=== PATIENT | male | born 2000 | race Caucasian/White ===

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

== ENCOUNTER 2019-06-21 07:20 | Emergency (ER) | payer BC, OTHER ==
[2019-06-21] MEDS ORDERED: Sodium Chloride 0.9% 10 ML Syringe FLUSH PRN (07:32)
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
[2019-06-21] MEDS ORDERED: FLU Vacc QS2019-20(6MOS+)/PF 60 MCG/0.5 ML SYRINGE IM ONE (08:15)
[2019-06-21] MEDS ORDERED: Iopamidol 612 MG/ML 100 ML Bottle IVPUSH ONE (08:17)
[2019-06-21] MEDS ORDERED: Sodium Chloride 0.9% 10 ML Syringe FLUSH ONE (08:17)
--- NOTE | 2019-06-21 08:34 | CT ---
Head CT Technique: Multiple axial sections through the brain were obtained. Intravenous contrast was not utilized. Comparison: No prior intracranial imaging. Findings: Ventricles along with basal cisterns and sulci over the convexities appear within normal limits for the patient's age. No abnormal parenchymal densities are seen. No evidence of intracranial hemorrhage. No midline shift or mass effect is seen. Bone window settings were reviewed which show minimal mucosal thickening scattered within the ethmoid sinuses. No acute calvarial abnormality is appreciated. Impression: 1. Minimal sinus findings which are felt to be incidental. 2. No acute intracranial abnormality is appreciated. Diagnostic code #2
--- NOTE | 2019-06-21 08:34 | CR ---
Chest: Portable view of the chest was obtained. Comparison: No prior chest imaging is available. Heart size and mediastinum are normal. Lungs are clear. Bony structures are unremarkable. Impression: 1. Nothing acute is seen on portable chest x-ray. Diagnostic code #1
--- NOTE | 2019-06-21 08:47 | CT ---
CT chest Technique: Multiple axial sections were obtained from above the lung apices inferiorly through the lung bases. Intravenous contrast was utilized. Comparison: No prior chest imaging is available. Findings: Soft tissue density within the superior mediastinum is seen which is felt compatible with residual thymic tissue. Aorta shows no aneurysm. No pericardial fluid is seen. Hilar regions and mediastinum show no adenopathy. Lung window settings were reviewed which show no acute parenchymal change. No pleural effusions are seen. No pneumothorax is identified. Bone window settings were reviewed which show no discrete rib fracture. Vertebral body heights and disc spaces are maintained within the thoracic spine. No discrete fracture or subluxation is seen. Reconstructed sagittal images of the sternum appear to be intact. Impression: 1. Nothing acute is appreciated on CT study of the chest. Diagnostic code #1 CT abdomen and pelvis Technique: Multiple axial sections were obtained from above the dome of the diaphragm inferiorly through the pubic symphysis. Intravenous contrast was utilized. No oral contrast was given. Comparison: Prior noncontrast CT abdomen and pelvis exam of 12/14/17. Findings: Liver contains no focal parenchymal abnormality. Spleen appears within normal limits. Small soft tissue nodule is seen adjacent to the upper spleen compatible with accessory splenic tissue. Adrenal glands appear unremarkable. Gallbladder contains no calcified gallstones. Pancreas is within normal limits. Kidneys show symmetric contrast enhancement and appear unremarkable. No retroperitoneal adenopathy is seen. Aorta shows no aneurysm. No mesenteric abnormalities are seen. No pelvic mass or adenopathy is noted. No free fluid or inflammatory change is seen within the abdomen or pelvis. Appendix is seen which is normal in appearance. Bone window settings were reviewed which show no acute osseous finding. Impression: 1. Nothing acute is appreciated on CT study of the abdomen and pelvis. Diagnostic code #1
--- NOTE | 2019-06-21 08:47 | CR ---
Right tibia and fibula: AP and lateral views of the right tibia and fibula were obtained. Comparison: No previous tibia or fibula exam. No fracture or other bony abnormality is identified. Impression: 1. No acute bony abnormality is appreciated on right tibia and fibula exam. Diagnostic code #1
--- NOTE | 2019-06-21 08:47 | CR ---
Right foot: Four views of the right foot were obtained. Comparison: No prior foot exam. Joint spaces are preserved. Small calcification is seen off the distal second metatarsal between the second and third distal metatarsals. This is felt to be old and of no acute significance. No acute fracture, dislocation or other bony abnormality is seen. Impression: 1. Small soft tissue calcification as noted above which is felt to be incidental. 2. Nothing acute is appreciated on right foot exam. Diagnostic code #2
[2019-06-21] MEDS ORDERED: Lidocaine 1% 50 ML MDV INJECT ONE (09:18)
[2019-06-21 11:15] VITALS: BP 136/87; PULSE 81
== END 2019-06-21 10:24 | disposition home or self-care (01) ==
LOC: JD.ED 07:20
DX: S81.011A Laceration without foreign body, right knee, initial encounter (principal); S93.601A Unspecified sprain of right foot, initial encounter; S00.83XA Contusion of other part of head, initial encounter; S20.211A Contusion of right front wall of thorax, initial encounter; V54.5XXA Driver of pick-up truck or van injured in collision with heavy transport vehicle or bus in traffic accident, initial encounter; Y92.410 Unspecified street and highway as the place of occurrence of the external cause
CPT/HCPCS: 12004; 36415; 70450; 71045; 71260; 73590; 73630; 74177; 80053; 80320; 85025; 99285; J2001; Q9967; G0480

== ENCOUNTER 2023-04-19 20:00 | Emergency (ER) | payer OTHER ==
[2023-04-19 20:51] LABS: BASOPHILS ABSOLUTE AUTO 0.04 K/mm3 (0.01-0.08); BASOPHILS PERCENT AUTO 0.4 % (0.1-1.2); EOSINOPHILS ABSOLUTE AUTO 0.29 K/mm3 (0.04-0.54); EOSINOPHILS PERCENT AUTO 2.6 (0.8-7.0); HEMOGLOBIN 15.1 gm/dl (13.7-17.5); IMMATURE GRAN ABSOLUTE AUTO 0.05 K/mm3 (0.00-0.10); IMMATURE GRAN PERCENT AUTO 0.4 % (<=1.0); LYMPHOCYTES ABSOLUTE AUTO 2.35 K/mm3 (1.32-3.57); LYMPHOCYTES PERCENT AUTO 20.9 % (21.8-53.1); MEAN CORPUSCULAR HEMOGLOBIN 30.2 pg (25.7-32.2); MEAN CORPUSCULAR HGB CONC 33.6 g/dl (32.2-35.5); MEAN PLATELET VOLUME 11.1 fl (9.4-12.3); MONOCYTES ABSOLUTE AUTO 0.97 K/mm3 (0.30-0.82); MONOCYTES PERCENT AUTO 8.6 % (5.3-12.2); NEUTROPHILS ABSOLUTE AUTO 7.53 K/mm3 (1.78-5.38); NEUTROPHILS PERCENT AUTO 67.1 % (34.0-67.9); PLATELET COUNT,PLT 290 K/mm3 (163-337); WHITE BLOOD CELL COUNT,WBC 11.23 K/mm3 (4.23-9.07)
[2023-04-19] MEDS ORDERED: Iopamidol 612 MG/ML 100 ML Bottle IVPUSH ONE (20:54)
[2023-04-19] MEDS ORDERED: Sodium Chloride 0.9% 10 ML Syringe FLUSH ONE (20:54)
[2023-04-19 21:08] LABS: A/G RATIO 1.3 (1-2); ALBUMIN 3.8 g/dl (3.4-5.0); ANION GAP 13.9 (5-15); BILIRUBIN TOTAL 0.2 mg/dL (0.2-1.0); BUN/CREATININE RATIO 15.5 (14-18); CREATININE 1.1 mg/dL (0.7-1.3); EST CRCL DRUG DOSING (CG) 103.55 mL/min; POTASSIUM,K 3.9 mEq/L (3.5-5.1); PROTEIN TOTAL,TP 6.8 g/dl (6.4-8.2)
[2023-04-19] MEDS ORDERED: Morphine 4 MG/ML Syringe IVPUSH ONE (23:14)
[2023-04-19] MEDS ORDERED: Naloxone 0.4 MG/ML SDV IVPUSH PRN (23:14)
[2023-04-19 23:30] LABS: APPEARANCE,URINE CLEAR (Clear); BILIRUBIN,URINE 1+ (Negative); COLOR,URINE YELLOW (Yellow); GLUCOSE,URINE NEGATIVE (Negative); KETONES,URINE NEGATIVE (Negative); LEUKOCYTE ESTERASE,URINE NEGATIVE (Negative); NITRITE,URINE NEGATIVE (Negative); OCCULT BLOOD,URINE NEGATIVE (Negative); PH,URINE 5.5 (5.0-8.0); PROTEIN,URINE 1+ (Negative); UROBILINOGEN,URINE 0.2 (0.2-1.0)
[2023-04-19 23:35] LABS: BACTERIA,URINE FEW /hpf (FEW); MUCUS,URINE MANY /hpf (FEW); RBC,URINE 0-5 /hpf (0-5); SQUAMOUS EPITHELIAL CELLS,UR 0-5 /hpf (0-5); WBC,URINE 0-5 /hpf (0-5)
[2023-04-19 23:42] LABS: BARBITURATE SCREEN,URINE NEGATIVE (CUTOFF=200); BENZODIAZEPINES SCREEN,URINE NEGATIVE (CUTOFF=150); BUPRENORPHINE SCREEN,URINE NEGATIVE (CUTOFF=10); METHADONE SCREEN, URINE NEGATIVE (CUT0FF=200); METHAMPHETAMINES SCREEN, URINE NEGATIVE (CUTOFF=500); OXYCODONE SCREEN,URINE NEGATIVE (CUT0FF=100); PROPOXYPHENE SCREEN,URINE NEGATIVE (CUTOFF=300); THC SCREEN,URINE 20 NG/ML NEGATIVE (CUTOFF=50)
[2023-04-19 23:43] LABS: AMPHETAMINES SCREEN, URINE NEGATIVE (CUTOFF=500)
[2023-04-20 00:37] VITALS: BP 135/77; PULSE 63
== END 2023-04-20 00:30 | disposition home or self-care (01) ==
LOC: JD.ED 20:00
DX: M54.2 Cervicalgia (principal); Z72.0 Tobacco use; V49.40XA Driver injured in collision with unspecified motor vehicles in traffic accident, initial encounter; Y92.410 Unspecified street and highway as the place of occurrence of the external cause
CPT/HCPCS: 36415; 70450; 70450-26; 71260; 71260-26; 72125; 72125-26; 74177; 74177-26; 80053; 80306; 81001; 85025; 96374; 99284; 99284-25; J2270; J3490; Q9967

== ENCOUNTER 2024-04-15 06:52 | Emergency (ER) | payer SELFPAY ==
[2024-04-15 07:04] VITALS: BP 156/98; PULSE 111
[2024-04-15] MEDS ORDERED: LORazepam 2 MG/ML SDV IM ONE (07:04)
== END 2024-04-15 07:15 ==
LOC: JD.ED 06:52
DX: F19.122 Other psychoactive substance abuse with intoxication with perceptual disturbances (principal); R45.1 Restlessness and agitation
CPT/HCPCS: 99284